=== PATIENT | male | born 1970 ===

== ENCOUNTER 2021-05-09 12:07 | Inpatient (IN) | payer MEDICAID, OTHER ==
[~2021-05-09] VITALS: Ht 170.2 cm; Wt 108.9 kg
[2021-05-09] MEDS ORDERED: KETOROLAC TROMETH 30 MG/ML 1ML VIAL IV ONE (12:30)
[2021-05-09] MEDS ORDERED: ONDANSETRON HCL 4 MG/2 ML VIAL IV ONE (12:30)
[2021-05-09] MEDS: MORPHINE SULFATE 4 MG/ML SYR/VIAL IV ONE ×2 (12:30→16:32)
[2021-05-09] MEDS: SODIUM CHLORIDE 0.9% 1,000 ML IVB ONE ×2 (12:30→16:33)
[2021-05-09 13:24] LABS: Basophils # (auto) 0 10 ^3/uL (0-0.2); Basophils % (auto) 0.4 % (0.0-2.0); Eosinophils # (auto) 0 10 ^3/uL (0-0.8); Eosinophils % (auto) 0.4 % (0.0-7.0); Hematocrit 42.4 % (41.0-53.0); Hemoglobin 14.8 g/dL (13.5-17.5); Lymphocytes # (auto) 0.5 10 ^3/uL (0.4-5.4); Lymphocytes % (auto) 10.2 % (10.0-50.0); Mean Corpuscular Hemoglobin 32.6 pg (28.0-32.0); Mean Corpuscular Volume 93.2 fL (80.0-100.0); Monocytes # (auto) 0.6 10 ^3/uL (0-1.3); Monocytes % (auto) 11.7 % (0.0-12.0); Neutrophils # (auto) 3.9 10 ^3/uL (1.6-8.6); Neutrophils % (auto) 77.3 % (37.0-80.0); Nucleated Red Blood Cells % 0.1 %; Red Blood Cells 4.55 10^6/uL (4.5-5.90); Red Cell Distribution Width 13.7 % (11.8-14.3)
[2021-05-09 13:42] LABS: Albumin 2.8 g/dL (3.4-5.0); Calcium 8.4 mg/dL (8.5-10.1); Potassium 4.2 mmol/L (3.5-5.1)
[2021-05-09 13:45] LABS: BUN/Creatinine Ratio 15.3; Bilirubin, Total 3.7 mg/dL (0.2-1.0)
[2021-05-09] MEDS ORDERED: ALBUMIN 25% 100 ML IV ONE (17:15)
[2021-05-09] MEDS ORDERED: NITROGLYCERIN 0.4 MG SL TAB SL PRN ×2 (17:15→22:30)
[2021-05-09] MEDS ORDERED: MORPHINE SULFATE INJECTION 2 MG/ML SYRG IV PRN ×2 (17:15→22:30)
[2021-05-09] MEDS ORDERED: SODIUM CHLORIDE 0.9% 500 ML IV ONE (17:30)
[2021-05-09] MEDS ORDERED: HYDROCORTISONE SOD SUCC 100 MG/2ML INJ VIAL IV ONE (17:30)
[2021-05-09] MEDS ORDERED: METF-372 PO (18:20)
[2021-05-09] MEDS ORDERED: LISI20TA28 PO (18:20)
[2021-05-09] MEDS ORDERED: SPIR50TA5 PO (18:20)
[2021-05-09] MEDS ORDERED: FUR20T PO (18:20)
[2021-05-09 19:30] VITALS: BP 99/44
[2021-05-09 20:39] LABS: INR 1.73 (0.9-1.15); Partial Thromboplastin Time 32.8 sec (23.6-33.0)
[2021-05-09] MEDS ORDERED: PANTOPRAZOLE 40 MG/10 ML VIAL INJ IV ONE (22:15)
[2021-05-09] MEDS ORDERED: MIDODRINE HCL 10 MG TAB PO ONE (22:15)
[2021-05-09] MEDS ORDERED: DEXTROSE (50%) 50ML SYRG IV PRN (22:30)
[2021-05-09] MEDS ORDERED: PANCREATIC ENZYMES 4200 UNIT CAP PO ONE (22:30)
[2021-05-09] MEDS ORDERED: cefTRIAXone 1GM/50ML D5W 50 ML IV ONE (22:30)
[2021-05-09] MEDS ORDERED: LORazepam 2MG/ML-1ML VIAL IV PRN (22:30)
[2021-05-09] MEDS ORDERED: DOCUSATE SOD 100 MG CAP PO PRN (22:30)
[2021-05-09] MEDS ORDERED: ALUM & MAG HYDROX-SIMETH LIQ(MAALOX) 30 ML PO PRN (22:30)
[2021-05-09] MEDS: HYDROcodone-ACET 5/325MG TAB PO PRN (23:42)
[2021-05-10] VITALS (7 sets, daily range): BP systolic 86–134; BP diastolic 44–72
[2021-05-10] MEDS: ALBUMIN 25% 100 ML IV SCH ×3 (02:00→18:23)
[2021-05-10] MEDS: LACTULOSE 20Gm/30ML SOLN PO SCH ×7 (02:30→22:22)
[2021-05-10] MEDS: ACCU-CHEK COMFORT CURVE STRIP VI SCH ×4 (06:06→22:22)
[2021-05-10] MEDS: InsuLIN REG 1unit/0.01ml Soln (100units/ml) SC SCH ×4 (06:07→22:24)
[2021-05-10] MEDS: MIDODRINE HCL 10 MG TAB PO SCH ×3 (06:08→18:12)
[2021-05-10 07:10] LABS: Basophils # (auto) 0 10 ^3/uL (0-0.2); Basophils % (auto) 0.1 % (0.0-2.0); Eosinophils # (auto) 0 10 ^3/uL (0-0.8); Hematocrit 35.1 % (41.0-53.0); Hemoglobin 12.5 g/dL (13.5-17.5); Lymphocytes # (auto) 0.4 10 ^3/uL (0.4-5.4); Lymphocytes % (auto) 4.6 % (10.0-50.0); Mean Corpuscular Hemoglobin 32.9 pg (28.0-32.0); Mean Corpuscular Hgb Conc. 35.6 g/dL (32.0-36.0); Mean Corpuscular Volume 92.5 fL (80.0-100.0); Monocytes # (auto) 0.9 10 ^3/uL (0-1.3); Monocytes % (auto) 10.8 % (0.0-12.0); Neutrophils # (auto) 6.9 10 ^3/uL (1.6-8.6); Neutrophils % (auto) 84.5 % (37.0-80.0); White Blood Cell 8.1 10^3/uL (4.4-10.8)
[2021-05-10 07:23] LABS: INR 1.98 (0.9-1.15); Partial Thromboplastin Time 34.7 sec (23.6-33.0)
[2021-05-10 07:24] LABS: Albumin 2.7 g/dL (3.4-5.0); Calcium 7.6 mg/dL (8.5-10.1); Magnesium 2.6 mg/dL (1.6-2.6)
[2021-05-10 07:38] LABS: BUN/Creatinine Ratio 17.3; Bilirubin, Total 2.7 mg/dL (0.2-1.0); Phosphorus 3.7 mg/dL (2.5-4.90); Total Protein 5.8 g/dL (6.4-8.2); Uric Acid 6.9 mg/dL (3.5-7.2)
[2021-05-10] MEDS: PANCREATIC ENZYMES 4200 UNIT CAP PO SCH ×3 (08:37→18:12)
[2021-05-10] MEDS: cefTRIAXone 1GM/50ML D5W 50 ML IV SCH (08:38)
[2021-05-10] MEDS: FUROSEMIDE 20 MG TAB PO SCH (10:00)
[2021-05-10] MEDS ORDERED: SPIRONOLACTONE 25 MG TAB PO SCH (10:00)
[2021-05-10] MEDS: PANTOPRAZOLE 40 MG/10 ML VIAL INJ IV SCH ×2 (10:04→22:22)
[2021-05-10] MEDS: HYDROcodone-ACET 5/325MG TAB PO PRN ×3 (10:05→20:30)
[2021-05-10] MEDS ORDERED: SODIUM ZIRCONIUM CYCL 10 GM PAK PO ONE (11:30)
[2021-05-10] MEDS ORDERED: SODIUM BICARBONATE 8.4% INJ 50ML SYRINGE IV ONE (12:45)
[2021-05-10] MEDS ORDERED: InsuLIN REG 1unit/0.01ml Soln (100units/ml) IV ONE (12:45)
[2021-05-10] MEDS ORDERED: DEXTROSE (50%) 50ML SYRG IV ONE (12:45)
[2021-05-10] MEDS ORDERED: CALCIUM GLUC 1,000mg/50ml-NS 50 ML IV ONE (12:45)
[2021-05-10] MEDS: SODIUM BICARBONATE 50ML VIAL 150 ML in D5W 5% 1,000 ML IV SCH ×2 (15:45→19:43)
[2021-05-10] MEDS: SODIUM ZIRCONIUM CYCL 10 GM PAK PO SCH (20:02)
[2021-05-11] MEDS: LACTULOSE 20Gm/30ML SOLN PO SCH ×6 (02:00→21:15)
[2021-05-11] MEDS: SODIUM BICARBONATE 50ML VIAL 150 ML in D5W 5% 1,000 ML IV SCH ×2 (03:15→15:12)
[2021-05-11] MEDS: SODIUM ZIRCONIUM CYCL 10 GM PAK PO SCH ×3 (04:00→19:51)
[2021-05-11 05:00] VITALS: BP 103/53
[2021-05-11] MEDS: MIDODRINE HCL 10 MG TAB PO SCH ×3 (06:16→18:28)
[2021-05-11] MEDS: InsuLIN REG 1unit/0.01ml Soln (100units/ml) SC SCH ×4 (06:16→21:11)
[2021-05-11] MEDS: ACCU-CHEK COMFORT CURVE STRIP VI SCH ×4 (06:17→21:15)
[2021-05-11 06:46] LABS: Calcium 7.6 mg/dL (8.5-10.1); Hematocrit 35.3 % (41.0-53.0); Hemoglobin 12.7 g/dL (13.5-17.5); Mean Corpuscular Hemoglobin 33.3 pg (28.0-32.0); Mean Corpuscular Hgb Conc. 36.1 g/dL (32.0-36.0); Mean Corpuscular Volume 92.3 fL (80.0-100.0); Potassium 4.7 mmol/L (3.5-5.1); Red Blood Cells 3.82 10^6/uL (4.5-5.90); Red Cell Distribution Width 13.9 % (11.8-14.3); White Blood Cell 7.5 10^3/uL (4.4-10.8)
[2021-05-11 06:48] LABS: BUN/Creatinine Ratio 23.1
[2021-05-11 07:20] LABS: Basophils % (manual) 0 (0.0-2.0); Blast Cells 0; Metamyelocytes % 0; Myelocytes % 0; Promyelocytes % 0; Reactive Lymphocytes 0
[2021-05-11 08:43] VITALS: BP 110/59
[2021-05-11] MEDS: PANTOPRAZOLE 40 MG/10 ML VIAL INJ IV SCH ×2 (09:32→21:15)
[2021-05-11] MEDS: cefTRIAXone 1GM/50ML D5W 50 ML IV SCH ×2 (09:32→10:32)
[2021-05-11] MEDS: FUROSEMIDE 20 MG TAB PO SCH (09:33)
[2021-05-11] MEDS: PANCREATIC ENZYMES 4200 UNIT CAP PO SCH ×3 (09:33→18:28)
[2021-05-11] MEDS: HYDROcodone-ACET 5/325MG TAB PO PRN (09:35)
[2021-05-11 09:37] LABS: Band Neutrophils % (manual) 40; Eosinophils % (manual) 1 (0-7); Lymphocytes % (manual) 6 (10.0-50.0); Monocytes % (manual) 7 (0-12)
[2021-05-11 13:00] VITALS: BP 101/48
[2021-05-11] MEDS: metroNIDAZOLE 500MG/100ML 100 ML IV SCH ×2 (14:25→21:15)
[2021-05-11 15:18] LABS: Hepatitis A Ab IgM Negative; Hepatitis B Core IgM Negative; Hepatitis C Antibody Negative (Negative)
[2021-05-11 16:53] VITALS: BP 110/61
[2021-05-11] MEDS: HYDROcodone-ACET 10/325MG TAB PO PRN (18:29)
[2021-05-11 22:00] VITALS: BP 130/60
[2021-05-12] MEDS: LACTULOSE 20Gm/30ML SOLN PO SCH ×6 (02:00→21:39)
[2021-05-12] MEDS: SODIUM BICARBONATE 50ML VIAL 150 ML in D5W 5% 1,000 ML IV SCH (03:39)
[2021-05-12] MEDS: HYDROcodone-ACET 10/325MG TAB PO PRN ×3 (03:44→17:43)
[2021-05-12] MEDS: SODIUM ZIRCONIUM CYCL 10 GM PAK PO SCH ×2 (04:00→12:30)
[2021-05-12 04:29] LABS: Protein, Urine 24.7 mg/dL (0.0-11.9); Sodium Urine < 5 mmol/L (40-220)
[2021-05-12 04:32] LABS: Creatinine, Urine 163 mg/dL (30.0-125.0)
[2021-05-12 04:42] LABS: Urine Bacteria FEW /hpf (None Seen); Urine Blood Negative /uL (Negative); Urine Hyaline Cast FEW /lpf (0 - 2); Urine Specific Gravity 1.018 (1.001-1.035); Urine WBC 1 /hpf (0 - 3)
[2021-05-12 04:55] VITALS: BP 138/67
[2021-05-12] MEDS: metroNIDAZOLE 500MG/100ML 100 ML IV SCH ×3 (05:47→21:39)
[2021-05-12] MEDS: MIDODRINE HCL 10 MG TAB PO SCH ×3 (05:47→17:42)
[2021-05-12] MEDS: ACCU-CHEK COMFORT CURVE STRIP VI SCH ×4 (06:33→21:39)
[2021-05-12] MEDS: InsuLIN REG 1unit/0.01ml Soln (100units/ml) SC SCH ×4 (06:34→21:36)
[2021-05-12 06:59] LABS: Basophils # (auto) 0 10 ^3/uL (0-0.2); Eosinophils # (auto) 0 10 ^3/uL (0-0.8); Hemoglobin 13.2 g/dL (13.5-17.5); Mean Corpuscular Hemoglobin 32.5 pg (28.0-32.0)
[2021-05-12 07:02] LABS: Basophils % (auto) 0.3 % (0.0-2.0); Eosinophils % (auto) 0.4 % (0.0-7.0); Hematocrit 37.6 % (41.0-53.0); Lymphocytes # (auto) 0.2 10 ^3/uL (0.4-5.4); Lymphocytes % (auto) 2.8 % (10.0-50.0); Mean Corpuscular Hgb Conc. 35.2 g/dL (32.0-36.0); Mean Corpuscular Volume 92.3 fL (80.0-100.0); Monocytes # (auto) 0.6 10 ^3/uL (0-1.3); Monocytes % (auto) 7.3 % (0.0-12.0); Neutrophils # (auto) 6.7 10 ^3/uL (1.6-8.6); Neutrophils % (auto) 89.2 % (37.0-80.0); Nucleated Red Blood Cells % 0.3 %; Red Blood Cells 4.07 10^6/uL (4.5-5.90); Red Cell Distribution Width 13.9 % (11.8-14.3); White Blood Cell 7.5 10^3/uL (4.4-10.8)
[2021-05-12 07:07] LABS: Calcium 7.8 mg/dL (8.5-10.1); Potassium 3.8 mmol/L (3.5-5.1)
[2021-05-12 07:08] LABS: BUN/Creatinine Ratio 39.4
[2021-05-12 08:45] VITALS: BP 111/63
[2021-05-12] MEDS: PANCREATIC ENZYMES 4200 UNIT CAP PO SCH ×3 (10:47→17:42)
[2021-05-12] MEDS: SODIUM CHLORIDE 0.9% 1,000 ML IV SCH ×2 (10:47→21:35)
[2021-05-12] MEDS: PANTOPRAZOLE 40 MG/10 ML VIAL INJ IV SCH ×2 (10:48→21:39)
[2021-05-12] MEDS: cefTRIAXone 1GM/50ML D5W 50 ML IV SCH (10:48)
[2021-05-12 13:00] VITALS: BP 153/69
[2021-05-12 17:19] VITALS: BP 152/78
[2021-05-12 21:38] VITALS: BP 148/78
[2021-05-13] MEDS: LACTULOSE 20Gm/30ML SOLN PO SCH ×6 (02:39→21:41)
[2021-05-13] MEDS: HYDROcodone-ACET 10/325MG TAB PO PRN ×2 (04:52→12:07)
[2021-05-13 04:54] VITALS: BP 145/83
[2021-05-13] MEDS: SODIUM CHLORIDE 0.9% 1,000 ML IV SCH (04:54)
[2021-05-13 05:23] LABS: Calcium 7.4 mg/dL (8.5-10.1); Potassium 3.8 mmol/L (3.5-5.1)
[2021-05-13 05:26] LABS: BUN/Creatinine Ratio 49.1
[2021-05-13] MEDS: InsuLIN REG 1unit/0.01ml Soln (100units/ml) SC SCH ×4 (06:08→21:38)
[2021-05-13] MEDS: metroNIDAZOLE 500MG/100ML 100 ML IV SCH ×3 (06:09→21:41)
[2021-05-13] MEDS: ACCU-CHEK COMFORT CURVE STRIP VI SCH ×4 (06:10→21:41)
[2021-05-13] MEDS: MIDODRINE HCL 10 MG TAB PO SCH ×3 (06:10→18:00)
[2021-05-13 08:30] VITALS: BP 151/71
[2021-05-13] MEDS: cefTRIAXone 1GM/50ML D5W 50 ML IV SCH (09:14)
[2021-05-13] MEDS: PANCREATIC ENZYMES 4200 UNIT CAP PO SCH ×3 (09:14→19:20)
[2021-05-13] MEDS: PANTOPRAZOLE 40 MG/10 ML VIAL INJ IV SCH ×2 (09:15→21:41)
[2021-05-13 12:30] VITALS: BP 156/75
[2021-05-13 17:00] VITALS: BP 161/71
[2021-05-13 22:00] VITALS: BP 158/71
[2021-05-14] MEDS: LACTULOSE 20Gm/30ML SOLN PO SCH ×7 (02:00→22:08)
[2021-05-14 04:00] VITALS: BP 146/76
[2021-05-14] MEDS: metroNIDAZOLE 500MG/100ML 100 ML IV SCH ×3 (05:11→22:00)
[2021-05-14] MEDS: HYDROcodone-ACET 10/325MG TAB PO PRN ×3 (05:12→17:15)
[2021-05-14] MEDS: MIDODRINE HCL 10 MG TAB PO SCH ×3 (05:16→17:26)
[2021-05-14 05:48] LABS: BUN/Creatinine Ratio 49.4; Calcium 7.6 mg/dL (8.5-10.1); Potassium 3.9 mmol/L (3.5-5.1)
[2021-05-14] MEDS: ACCU-CHEK COMFORT CURVE STRIP VI SCH ×4 (06:18→22:01)
[2021-05-14] MEDS: InsuLIN REG 1unit/0.01ml Soln (100units/ml) SC SCH ×4 (06:18→21:54)
[2021-05-14 09:00] VITALS: BP 142/75
[2021-05-14] MEDS: PANTOPRAZOLE 40 MG/10 ML VIAL INJ IV SCH ×2 (09:37→22:01)
[2021-05-14] MEDS: cefTRIAXone 1GM/50ML D5W 50 ML IV SCH (09:37)
[2021-05-14] MEDS: PANCREATIC ENZYMES 4200 UNIT CAP PO SCH ×3 (09:37→17:26)
[2021-05-14 13:00] VITALS: BP 127/75
[2021-05-14 17:46] VITALS: BP 158/71
[2021-05-14 21:35] VITALS: BP 138/70
[2021-05-15] MEDS: HYDROcodone-ACET 10/325MG TAB PO PRN ×2 (00:31→20:15)
[2021-05-15] MEDS: LACTULOSE 20Gm/30ML SOLN PO SCH ×4 (02:00→14:30)
[2021-05-15 04:33] VITALS: BP 149/73
[2021-05-15] MEDS: MIDODRINE HCL 10 MG TAB PO SCH ×2 (05:56→12:00)
[2021-05-15] MEDS: metroNIDAZOLE 500MG/100ML 100 ML IV SCH ×2 (05:56→14:30)
[2021-05-15 06:04] LABS: BUN/Creatinine Ratio 53.6; Potassium 3.7 mmol/L (3.5-5.1)
[2021-05-15] MEDS: InsuLIN REG 1unit/0.01ml Soln (100units/ml) SC SCH ×3 (06:09→22:00)
[2021-05-15] MEDS: ACCU-CHEK COMFORT CURVE STRIP VI SCH ×4 (06:12→21:55)
[2021-05-15] MEDS: PANCREATIC ENZYMES 4200 UNIT CAP PO SCH ×3 (08:00→18:00)
[2021-05-15 08:43] VITALS: BP 147/77
[2021-05-15] MEDS: cefTRIAXone 1GM/50ML D5W 50 ML IV SCH (09:00)
[2021-05-15] MEDS: PANTOPRAZOLE 40 MG/10 ML VIAL INJ IV SCH ×2 (10:00→22:06)
[2021-05-15 10:50] LABS: INR 1.93 (0.9-1.15); Partial Thromboplastin Time 37.6 sec (23.6-33.0)
[2021-05-15] MEDS: ONDANSETRON HCL 4 MG/2 ML VIAL IV PRN ×2 (11:42→20:12)
[2021-05-15] MEDS: HYDROcodone-ACET 5/325MG TAB PO PRN (11:43)
[2021-05-15 11:49] LABS: Eosinophils # (auto) 0.1 10 ^3/uL (0-0.8); Eosinophils % (auto) 0.5 % (0.0-7.0); Lymphocytes # (auto) 0.7 10 ^3/uL (0.4-5.4); Mean Corpuscular Hemoglobin 31.3 pg (28.0-32.0); Mean Corpuscular Hgb Conc. 33.7 g/dL (32.0-36.0)
[2021-05-15 11:52] LABS: Basophils # (auto) 0.1 10 ^3/uL (0-0.2); Basophils % (auto) 0.5 % (0.0-2.0); Hematocrit 40.8 % (41.0-53.0); Hemoglobin 13.7 g/dL (13.5-17.5); Lymphocytes % (auto) 4.9 % (10.0-50.0); Mean Corpuscular Volume 93.1 fL (80.0-100.0); Monocytes # (auto) 1.6 10 ^3/uL (0-1.3); Monocytes % (auto) 11.2 % (0.0-12.0); Neutrophils % (auto) 82.9 % (37.0-80.0); Nucleated Red Blood Cells % 0.1 %; Red Blood Cells 4.38 10^6/uL (4.5-5.90); Red Cell Distribution Width 14.5 % (11.8-14.3); White Blood Cell 14.5 10^3/uL (4.4-10.8)
[2021-05-15 13:00] VITALS: BP 136/72
[2021-05-15 16:51] VITALS: BP 159/77
[2021-05-15 20:00] VITALS: BP 158/76
[2021-05-16] MEDS: ONDANSETRON HCL 4 MG/2 ML VIAL IV PRN ×2 (03:19→07:34)
[2021-05-16] MEDS: HYDROcodone-ACET 10/325MG TAB PO PRN (03:19)
[2021-05-16] MEDS: InsuLIN REG 1unit/0.01ml Soln (100units/ml) SC SCH ×3 (03:27→12:30)
[2021-05-16 07:18] LABS: Potassium 3.9 mmol/L (3.5-5.1)
[2021-05-16] MEDS: ACCU-CHEK COMFORT CURVE STRIP VI SCH ×2 (07:21→12:25)
[2021-05-16 07:26] LABS: BUN/Creatinine Ratio 50.4; Calcium 7.6 mg/dL (8.5-10.1)
[2021-05-16] MEDS: HYDROcodone-ACET 5/325MG TAB PO PRN (07:35)
[2021-05-16] MEDS: PANCREATIC ENZYMES 4200 UNIT CAP PO SCH ×2 (08:00→12:00)
[2021-05-16 09:00] VITALS: BP 159/72
[2021-05-16] MEDS: cefTRIAXone 1GM/50ML D5W 50 ML IV SCH (09:00)
[2021-05-16] MEDS ORDERED: FUROSEMIDE 20 MG TAB PO SCH (10:00)
[2021-05-16] MEDS: PANTOPRAZOLE 40 MG/10 ML VIAL INJ IV SCH (10:00)
[2021-05-16 11:03] VITALS: BP 159/72
[2021-05-16 13:00] VITALS: BP 144/70
== END 2021-05-16 15:45 | disposition home or self-care (01) | DRG 720 ==
LOC: ER 12:07 → EDBD 12:07 → TELE 17:14 → TELE-CENTR 19:24
PROVIDERS: ADMIT Hospitalist; ATTEND Family Medicine
PROC: 0W9G3ZZ Drainage of Peritoneal Cavity, Percutaneous Approach (ICD-10-PCS; principal; 2021-05-10)
PROC: 0W9G3ZZ Drainage of Peritoneal Cavity, Percutaneous Approach (ICD-10-PCS; 2021-05-15)
DX: A41.9 Sepsis, unspecified organism (principal); N17.0 Acute kidney failure with tubular necrosis; K76.7 Hepatorenal syndrome; E43 Unspecified severe protein-calorie malnutrition; D68.4 Acquired coagulation factor deficiency; D69.6 Thrombocytopenia, unspecified; K70.31 Alcoholic cirrhosis of liver with ascites; K76.6 Portal hypertension; R16.2 Hepatomegaly with splenomegaly, not elsewhere classified; E11.40 Type 2 diabetes mellitus with diabetic neuropathy, unspecified; K31.89 Other diseases of stomach and duodenum; K86.1 Other chronic pancreatitis; N18.31 Chronic kidney disease, stage 3a; E87.5 Hyperkalemia; Z20.822 Contact with and (suspected) exposure to COVID-19; E11.22 Type 2 diabetes mellitus with diabetic chronic kidney disease; F17.210 Nicotine dependence, cigarettes, uncomplicated; I12.9 Hypertensive chronic kidney disease with stage 1 through stage 4 chronic kidney disease, or unspecified chronic kidney disease; N28.1 Cyst of kidney, acquired; N18.32 Chronic kidney disease, stage 3b; Z79.899 Other long term (current) drug therapy; Z80.0 Family history of malignant neoplasm of digestive organs; Z80.6 Family history of leukemia; Z83.3 Family history of diabetes mellitus; Z85.038 Personal history of other malignant neoplasm of large intestine; Z68.35 Body mass index [BMI] 35.0-35.9, adult
CPT/HCPCS: 36415; 49083; 74176; 76700; 76705; 76775; 76942; 78582; 80048; 80053; 80061; 80074; 81001; 82105; 82140; 82150; 82378; 82570; 82728; 82962; 83036; 83615; 83690; 83735; 83880; 83986; 84100; 84154; 84156; 84300; 84443; 84484; 84550; 85007; 85025; 85027; 85379; 85610; 85730; 86301; 87040; 87077; 87186; 87205; 87426; 89051; 93005; 93970; 96361; 96365; 96375; C9113; G0378; J0696; J1815; J1885; J2405; J3490; P9047

== ENCOUNTER 2021-05-23 10:13 | Inpatient (IN) | payer MEDICAID ==
[~2021-05-23] VITALS: Ht 172.7 cm; Wt 108.5 kg
[~2021-05-23 10:13] MED LIST: FUR20T PO; LISI20TA28 PO; METF-372 PO; SPIR50TA5 PO
[2021-05-23 10:55] LABS: Basophils # (auto) 0.1 10 ^3/uL (0-0.2); Basophils % (auto) 0.6 % (0.0-2.0); Eosinophils # (auto) 0.1 10 ^3/uL (0-0.8); Eosinophils % (auto) 1.1 % (0.0-7.0); Hematocrit 38.1 % (41.0-53.0); Hemoglobin 13.1 g/dL (13.5-17.5); Lymphocytes # (auto) 0.6 10 ^3/uL (0.4-5.4); Lymphocytes % (auto) 6.3 % (10.0-50.0); Mean Corpuscular Hemoglobin 32.2 pg (28.0-32.0); Mean Corpuscular Hgb Conc. 34.4 g/dL (32.0-36.0); Mean Corpuscular Volume 93.6 fL (80.0-100.0); Neutrophils # (auto) 7.5 10 ^3/uL (1.6-8.6); Nucleated Red Blood Cells % 0.1 %; Red Blood Cells 4.07 10^6/uL (4.5-5.90); Red Cell Distribution Width 14.5 % (11.8-14.3); White Blood Cell 9.2 10^3/uL (4.4-10.8)
[2021-05-23 11:14] LABS: INR 2.2 (0.9-1.15); Partial Thromboplastin Time 35.6 sec (23.6-33.0)
[2021-05-23 11:21] LABS: Albumin 1.8 g/dL (3.4-5.0); Calcium 8.4 mg/dL (8.5-10.1)
[2021-05-23 11:24] LABS: BUN/Creatinine Ratio 24.8; Bilirubin, Total 4.2 mg/dL (0.2-1.0)
[2021-05-23 11:42] LABS: Potassium 5.8 mmol/L (3.5-5.1)
[2021-05-23] MEDS ORDERED: PIPERACILLIN-TAZO 4.5GM 100 ML IV ONE (14:30)
[2021-05-23] MEDS ORDERED: SODIUM ZIRCONIUM CYCL 10 GM PAK PO SCH (17:13)
[2021-05-23] MEDS ORDERED: SODIUM ZIRCONIUM CYCL 10 GM PAK PO ONE (17:15)
[2021-05-23] MEDS ORDERED: FUROSEMIDE 40 MG/4 ML VIAL IV ONE (17:15)
[2021-05-23] MEDS ORDERED: NITROGLYCERIN 0.4 MG SL TAB SL PRN ×2 (17:15→20:30)
[2021-05-23] MEDS ORDERED: MORPHINE SULFATE INJECTION 2 MG/ML SYRG IV PRN ×3 (17:15→20:30)
[2021-05-23] MEDS ORDERED: ALBUTEROL SULF 2.5 MG/0.5ML(0.5%) NEB SOLN NEB ONE (17:15)
[2021-05-23] MEDS ORDERED: InsuLIN REG 1unit/0.01ml Soln (100units/ml) IV ONE (17:15)
[2021-05-23] MEDS ORDERED: DEXTROSE (50%) 50ML SYRG IV ONE (17:15)
[2021-05-23] MEDS ORDERED: CALCIUM CHL 100MG/ML 1,000 MG in D5W 5% 100 ML IV ONE (17:15)
[2021-05-23] MEDS ORDERED: SODIUM BICARBONATE 8.4% INJ 50ML SYRINGE IV ONE (17:15)
[2021-05-23] MEDS ORDERED: ONDANSETRON HCL 4 MG/2 ML VIAL IV PRN ×2 (17:30→20:30)
[2021-05-23] MEDS ORDERED: BUMETANIDE 2.5mg/10ml (0.25 mg/ml) INJ IV ONE (20:00)
[2021-05-23] MEDS ORDERED: ALBUMIN 25% 100 ML IV ONE (20:00)
[2021-05-23] MEDS ORDERED: ALBUMIN 25% 100 ML IV SCH (20:00)
[2021-05-23] MEDS ORDERED: cefTRIAXone 1GM/50ML D5W 50 ML IV ONE (20:00)
[2021-05-23] MEDS ORDERED: PANTOPRAZOLE 40 MG/10 ML VIAL INJ IV ONE (20:00)
[2021-05-23] MEDS ORDERED: OCTREOTIDE ACETATE 100 MCG/ML VL SUBCUT ONE (20:15)
[2021-05-23] MEDS ORDERED: MIDODRINE HCL 10 MG TAB PO ONE (20:15)
[2021-05-23] MEDS ORDERED: DEXTROSE (50%) 50ML SYRG IV PRN (20:30)
[2021-05-23] MEDS ORDERED: ALUM & MAG HYDROX-SIMETH LIQ(MAALOX) 30 ML PO PRN (20:30)
[2021-05-23] MEDS ORDERED: DOCUSATE SOD 100 MG CAP PO PRN (20:30)
[2021-05-23] MEDS: ACCU-CHEK COMFORT CURVE STRIP VI SCH (22:00)
[2021-05-23] MEDS ORDERED: PROPRANOLOL HCL 20 MG TAB PO SCH (22:00)
[2021-05-23] MEDS: OCTREOTIDE ACETATE 100 MCG/ML VL SUBCUT SCH (22:00)
[2021-05-23] MEDS: MIDODRINE HCL 10 MG TAB PO SCH (22:00)
[2021-05-23] MEDS: ALBUMIN 25% 100 ML IV SCH (22:00)
[2021-05-23] MEDS: InsuLIN REG 1unit/0.01ml Soln (100units/ml) SC SCH (22:00)
[2021-05-23] MEDS: LACTULOSE 20Gm/30ML SOLN PO SCH (23:06)
[2021-05-23] MEDS: SODIUM ZIRCONIUM CYCL 10 GM PAK PO SCH (23:06)
[2021-05-23] MEDS: HYDROcodone-ACET 5/325MG TAB PO PRN (23:07)
[2021-05-23 23:12] LABS: Potassium 5.6 mmol/L (3.5-5.1)
[2021-05-23 23:31] LABS: Cholesterol < 50 mg/dL (< 200); HDL Cholesterol 10 mg/dL (40-59); LDL Cholesterol 19 mg/dL (< 100); Triglycerides 66 mg/dL (< 150)
[2021-05-23 23:32] VITALS: BP 121/52
[2021-05-24 00:04] LABS: Amphetamine Screen, Urine NEGATIVE (NEGATIVE); Barbiturate Scree,Urine NEGATIVE (NEGATIVE); Benzodiazephine Screen, Urine NEGATIVE (NEGATIVE); Cannabinoid Screen, Urine NEGATIVE (NEGATIVE); Cocaine Screen, Urine NEGATIVE (NEGATIVE); Opiate Scree,Urine POSITIVE (NEGATIVE); Phencyclidine Screen, Urine NEGATIVE (NEGATIVE)
[2021-05-24 00:10] LABS: Urine Bacteria NONE SEEN /hpf (None Seen); Urine Blood Negative /uL (Negative); Urine WBC 9 /hpf (0 - 3)
[2021-05-24] MEDS: LACTULOSE 20Gm/30ML SOLN PO SCH ×4 (02:24→21:18)
[2021-05-24 04:30] VITALS: BP 121/53
[2021-05-24] MEDS: ALBUMIN 25% 100 ML IV SCH ×3 (04:47→20:15)
[2021-05-24] MEDS: MIDODRINE HCL 10 MG TAB PO SCH ×3 (05:47→16:55)
[2021-05-24] MEDS: SODIUM ZIRCONIUM CYCL 10 GM PAK PO SCH ×3 (05:47→21:18)
[2021-05-24] MEDS: OCTREOTIDE ACETATE 100 MCG/ML VL SUBCUT SCH (05:47)
[2021-05-24] MEDS: InsuLIN REG 1unit/0.01ml Soln (100units/ml) SC SCH ×4 (06:00→21:23)
[2021-05-24] MEDS: ACCU-CHEK COMFORT CURVE STRIP VI SCH ×4 (06:00→21:24)
[2021-05-24 07:09] LABS: Basophils # (auto) 0 10 ^3/uL (0-0.2); Basophils % (auto) 0.6 % (0.0-2.0); Eosinophils # (auto) 0.1 10 ^3/uL (0-0.8); Eosinophils % (auto) 0.7 % (0.0-7.0); Hematocrit 38.7 % (41.0-53.0); Hemoglobin 13.1 g/dL (13.5-17.5); Lymphocytes # (auto) 0.7 10 ^3/uL (0.4-5.4); Lymphocytes % (auto) 9.2 % (10.0-50.0); Mean Corpuscular Hemoglobin 32.2 pg (28.0-32.0); Mean Corpuscular Hgb Conc. 33.9 g/dL (32.0-36.0); Monocytes % (auto) 12.4 % (0.0-12.0); Neutrophils # (auto) 6.1 10 ^3/uL (1.6-8.6); Neutrophils % (auto) 77.1 % (37.0-80.0); Red Blood Cells 4.08 10^6/uL (4.5-5.90); Red Cell Distribution Width 14.9 % (11.8-14.3); White Blood Cell 7.9 10^3/uL (4.4-10.8)
[2021-05-24 07:24] LABS: INR 2.15 (0.9-1.15); Partial Thromboplastin Time 36.7 sec (23.6-33.0)
[2021-05-24 07:35] LABS: Albumin 2.3 g/dL (3.4-5.0); BUN/Creatinine Ratio 22.2; Bilirubin, Total 4.8 mg/dL (0.2-1.0); Calcium 8.7 mg/dL (8.5-10.1); Phosphorus 7.4 mg/dL (2.5-4.90); Total Protein 7.4 g/dL (6.4-8.2)
[2021-05-24 08:00] VITALS: BP 104/52
[2021-05-24 08:21] LABS: Potassium 5.7 mmol/L (3.5-5.1)
[2021-05-24] MEDS ORDERED: cefTRIAXone 1GM/50ML D5W 50 ML IV SCH (09:00)
[2021-05-24] MEDS ORDERED: SPIRONOLACTONE 25 MG TAB PO SCH (10:00)
[2021-05-24] MEDS ORDERED: FUROSEMIDE 20 MG TAB PO SCH (10:00)
[2021-05-24] MEDS: PANTOPRAZOLE 40 MG/10 ML VIAL INJ IV SCH (10:07)
[2021-05-24] MEDS ORDERED: FLUCONAZOLE 200MG/100ML 100 ML IV ONE (11:00)
[2021-05-24] MEDS ORDERED: CALCIUM CHL 100MG/ML 500 MG in D5W 5% 100 ML IV ONE (11:00)
[2021-05-24 12:00] VITALS: BP 138/63
[2021-05-24 17:59] LABS: Anion Gap 10 (5-15); Carbon Dioxide 23 mmol/L (21-32); Chloride 95 mmol/L (98-107); Glucose 220 mg/dL (74-106); Sodium 128 mmol/L (136-145)
[2021-05-24 18:00] LABS: BUN/Creatinine Ratio 23.2; Calcium 8.4 mg/dL (8.5-10.1); GFR African American 14 mL/min; GFR Non-African American 11 mL/min
[2021-05-24] MEDS: SODIUM CHLORIDE 0.9% 1,000 ML IV SCH (19:00)
[2021-05-24 20:01] LABS: Blood Urea Nitrogen 132 mg/dL (7-18); Potassium 5.7 mmol/L (3.5-5.1)
[2021-05-24] MEDS ORDERED: InsuLIN REG 1unit/0.01ml Soln (100units/ml) IV ONE (20:30)
[2021-05-24] MEDS ORDERED: SODIUM BICARBONATE 8.4% INJ 50ML SYRINGE IV ONE (20:30)
[2021-05-24] MEDS: HYDROcodone-ACET 5/325MG TAB PO PRN (21:18)
[2021-05-24 21:28] VITALS: BP 126/61
[2021-05-24] MEDS ORDERED: LINEZOLID 600MG/300ML 300 ML IV SCH (22:00)
[2021-05-25] MEDS: ALBUMIN 25% 100 ML IV SCH ×2 (04:14→15:52)
[2021-05-25] MEDS: SODIUM CHLORIDE 0.9% 1,000 ML IV SCH ×2 (04:14→15:00)
[2021-05-25 05:26] LABS: Protein, Urine 30.8 mg/dL (0.0-11.9)
[2021-05-25 05:44] VITALS: BP 118/56
[2021-05-25 05:56] LABS: Urine Bacteria FEW /hpf (None Seen); Urine Blood TRACE /uL (Negative); Urine Budding Yeast MANY /hpf (None Seen); Urine Hyaline Cast MANY /lpf (0 - 2); Urine Mucus FEW (None Seen); Urine Specific Gravity 1.016 (1.001-1.035); Urine WBC 8 /hpf (0 - 3)
[2021-05-25] MEDS: MIDODRINE HCL 10 MG TAB PO SCH ×3 (06:00→18:36)
[2021-05-25] MEDS: SODIUM ZIRCONIUM CYCL 10 GM PAK PO SCH ×2 (06:00→15:40)
[2021-05-25] MEDS: ACCU-CHEK COMFORT CURVE STRIP VI SCH ×4 (06:19→22:04)
[2021-05-25] MEDS: InsuLIN REG 1unit/0.01ml Soln (100units/ml) SC SCH ×4 (06:19→22:06)
[2021-05-25 07:27] LABS: Hematocrit 33.9 % (41.0-53.0); Hemoglobin 11.5 g/dL (13.5-17.5); Mean Corpuscular Hemoglobin 32.1 pg (28.0-32.0); Mean Corpuscular Hgb Conc. 33.9 g/dL (32.0-36.0); Mean Corpuscular Volume 94.6 fL (80.0-100.0); Red Blood Cells 3.59 10^6/uL (4.5-5.90); Red Cell Distribution Width 14.6 % (11.8-14.3); White Blood Cell 7.3 10^3/uL (4.4-10.8)
[2021-05-25 07:32] LABS: Basophils % (manual) 0 (0.0-2.0); Blast Cells 0; Eosinophils % (manual) 0 (0-7); Metamyelocytes % 0; Myelocytes % 0; Promyelocytes % 0; Reactive Lymphocytes 0
[2021-05-25 07:41] LABS: Albumin 2.3 g/dL (3.4-5.0); Calcium 8.4 mg/dL (8.5-10.1); Potassium 5.2 mmol/L (3.5-5.1)
[2021-05-25 07:46] LABS: BUN/Creatinine Ratio 23.8; Bilirubin, Total 5.2 mg/dL (0.2-1.0); Total Protein 6.1 g/dL (6.4-8.2)
[2021-05-25 08:00] VITALS: BP 125/61
[2021-05-25 08:12] LABS: Band Neutrophils % (manual) 8; Lymphocytes % (manual) 8 (10.0-50.0); Monocytes % (manual) 12 (0-12)
[2021-05-25] MEDS: PANTOPRAZOLE 40 MG/10 ML VIAL INJ IV SCH (08:51)
[2021-05-25] MEDS: LACTULOSE 20Gm/30ML SOLN PO SCH ×2 (08:52→22:04)
[2021-05-25] MEDS ORDERED: fentaNYL CITRATE 100 MCG/2 ML VL ONE (09:20)
[2021-05-25] MEDS: FLUCONAZOLE 200MG/100ML 100 ML IV SCH (11:35)
[2021-05-25] MEDS ORDERED: FUROSEMIDE 40 MG/4 ML VIAL IV ONE (11:45)
[2021-05-25] MEDS: MORPHINE SULFATE INJECTION 2 MG/ML SYRG IV PRN ×2 (11:51→18:37)
[2021-05-25 12:00] VITALS: BP 127/58
[2021-05-25 13:11] LABS: INR 2.45 (0.9-1.15); Partial Thromboplastin Time 39.9 sec (23.6-33.0)
[2021-05-25] MEDS: AMPICILLIN & SULBACTAM SODIUM 3 GM in SODIUM CHL 0.9% 100 ML IV SCH ×2 (13:28→23:00)
[2021-05-25] MEDS: HYDROcodone-ACET 5/325MG TAB PO PRN ×3 (15:53→23:58)
[2021-05-25 16:00] VITALS: BP 125/62
[2021-05-25 21:46] VITALS: BP 124/63
[2021-05-26] MEDS: SODIUM CHLORIDE 0.9% 1,000 ML IV SCH ×2 (01:00→12:47)
[2021-05-26 05:28] VITALS: BP 117/63
[2021-05-26] MEDS: MIDODRINE HCL 10 MG TAB PO SCH ×3 (06:00→17:47)
[2021-05-26 06:48] LABS: Hematocrit 34.5 % (41.0-53.0); Hemoglobin 11.4 g/dL (13.5-17.5); Mean Corpuscular Hemoglobin 31.6 pg (28.0-32.0); Mean Corpuscular Hgb Conc. 33.1 g/dL (32.0-36.0); Mean Corpuscular Volume 95.6 fL (80.0-100.0); Red Blood Cells 3.61 10^6/uL (4.5-5.90); Red Cell Distribution Width 14.8 % (11.8-14.3); White Blood Cell 4.6 10^3/uL (4.4-10.8)
[2021-05-26 06:58] LABS: Basophils % (manual) 0 (0.0-2.0); Blast Cells 0; Metamyelocytes % 0; Myelocytes % 0; Promyelocytes % 0; Reactive Lymphocytes 0
[2021-05-26] MEDS: ACCU-CHEK COMFORT CURVE STRIP VI SCH ×4 (07:10→21:55)
[2021-05-26] MEDS: InsuLIN REG 1unit/0.01ml Soln (100units/ml) SC SCH ×4 (07:12→21:59)
[2021-05-26 07:20] LABS: Albumin 2.2 g/dL (3.4-5.0); Calcium 8.3 mg/dL (8.5-10.1); Potassium 4.6 mmol/L (3.5-5.1)
[2021-05-26 07:23] LABS: BUN/Creatinine Ratio 28.9
[2021-05-26 07:25] LABS: Bilirubin, Total 4.9 mg/dL (0.2-1.0); Total Protein 5.7 g/dL (6.4-8.2)
[2021-05-26 09:00] VITALS: BP 136/66
[2021-05-26] MEDS ORDERED: FUROSEMIDE 40 MG/4 ML VIAL IV SCH (10:00)
[2021-05-26] MEDS: FLUCONAZOLE 200MG/100ML 100 ML IV SCH (10:01)
[2021-05-26] MEDS: PANTOPRAZOLE 40 MG/10 ML VIAL INJ IV SCH (10:02)
[2021-05-26] MEDS: LACTULOSE 20Gm/30ML SOLN PO SCH ×2 (10:02→21:55)
[2021-05-26] MEDS: HYDROcodone-ACET 5/325MG TAB PO PRN ×2 (10:05→17:47)
[2021-05-26 11:52] LABS: Band Neutrophils % (manual) 10; Eosinophils % (manual) 3 (0-7); Lymphocytes % (manual) 8 (10.0-50.0); Monocytes % (manual) 9 (0-12)
[2021-05-26] MEDS: AMPICILLIN & SULBACTAM SODIUM 3 GM in SODIUM CHL 0.9% 100 ML IV SCH ×2 (12:47→23:38)
[2021-05-26 13:00] VITALS: BP 127/67
[2021-05-26] MEDS: OCTREOTIDE ACETATE 100 MCG/ML VL SUBCUT SCH ×2 (14:24→21:55)
[2021-05-26 16:54] VITALS: BP 129/67
[2021-05-26] MEDS: DOPamine 1600MCG/ML D5W 250 ML IV SCH (17:46)
[2021-05-26] MEDS: ALBUMIN 25% 100 ML IV SCH ×2 (18:08→22:20)
[2021-05-26 22:00] VITALS: BP 165/67
[2021-05-27] MEDS: SODIUM CHLORIDE 0.9% 1,000 ML IV SCH ×2 (01:05→14:25)
[2021-05-27] MEDS: HYDROcodone-ACET 5/325MG TAB PO PRN ×3 (02:14→20:29)
[2021-05-27 05:00] VITALS: BP 148/73
[2021-05-27] MEDS: MIDODRINE HCL 10 MG TAB PO SCH (06:00)
[2021-05-27] MEDS: OCTREOTIDE ACETATE 100 MCG/ML VL SUBCUT SCH ×3 (06:03→20:29)
[2021-05-27] MEDS: ACCU-CHEK COMFORT CURVE STRIP VI SCH ×4 (06:03→20:29)
[2021-05-27] MEDS: InsuLIN REG 1unit/0.01ml Soln (100units/ml) SC SCH ×4 (06:04→20:38)
[2021-05-27 06:32] LABS: Red Blood Cells 3.66 10^6/uL (4.5-5.90)
[2021-05-27 06:35] LABS: Hematocrit 34.7 % (41.0-53.0); Hemoglobin 12.2 g/dL (13.5-17.5); Mean Corpuscular Hemoglobin 33.4 pg (28.0-32.0); Mean Corpuscular Hgb Conc. 35.2 g/dL (32.0-36.0); Mean Corpuscular Volume 94.7 fL (80.0-100.0); Red Cell Distribution Width 14.7 % (11.8-14.3); White Blood Cell 2.7 10^3/uL (4.4-10.8)
[2021-05-27 06:40] LABS: Potassium 4.9 mmol/L (3.5-5.1)
[2021-05-27 06:47] LABS: Albumin 2.8 g/dL (3.4-5.0); BUN/Creatinine Ratio 36.8; Bilirubin, Total 6.7 mg/dL (0.2-1.0); Calcium 8.4 mg/dL (8.5-10.1); Total Protein 6.4 g/dL (6.4-8.2)
[2021-05-27 07:21] LABS: Basophils % (manual) 0 (0.0-2.0); Blast Cells 0; Metamyelocytes % 0; Myelocytes % 0; Promyelocytes % 0; Reactive Lymphocytes 0
[2021-05-27 08:02] LABS: Band Neutrophils % (manual) 14; Eosinophils % (manual) 2 (0-7); Lymphocytes % (manual) 13 (10.0-50.0); Monocytes % (manual) 11 (0-12)
[2021-05-27 09:00] VITALS: BP 145/76
[2021-05-27] MEDS: FLUCONAZOLE 200MG/100ML 100 ML IV SCH (09:56)
[2021-05-27] MEDS: LACTULOSE 20Gm/30ML SOLN PO SCH ×2 (09:56→20:29)
[2021-05-27] MEDS: PANTOPRAZOLE 40 MG/10 ML VIAL INJ IV SCH (09:56)
[2021-05-27] MEDS: DOPamine 1600MCG/ML D5W 250 ML IV SCH (10:45)
[2021-05-27] MEDS: AMPICILLIN & SULBACTAM SODIUM 3 GM in SODIUM CHL 0.9% 100 ML IV SCH ×2 (11:00→22:45)
[2021-05-27 13:00] VITALS: BP 151/63
[2021-05-27] MEDS: MORPHINE SULFATE INJECTION 2 MG/ML SYRG IV PRN ×2 (14:27→22:55)
[2021-05-27 16:54] VITALS: BP 143/74
[2021-05-27 22:00] VITALS: BP 155/80
[2021-05-28] MEDS: DOPamine 1600MCG/ML D5W 250 ML IV SCH (01:33)
[2021-05-28] MEDS: SODIUM CHLORIDE 0.9% 1,000 ML IV SCH ×2 (04:00→17:10)
[2021-05-28 05:00] VITALS: BP 136/66
[2021-05-28] MEDS: OCTREOTIDE ACETATE 100 MCG/ML VL SUBCUT SCH ×3 (05:48→21:57)
[2021-05-28 05:55] LABS: INR 2.05 (0.9-1.15); Partial Thromboplastin Time 37.7 sec (23.6-33.0)
[2021-05-28] MEDS: InsuLIN REG 1unit/0.01ml Soln (100units/ml) SC SCH ×4 (05:55→22:21)
[2021-05-28] MEDS: ACCU-CHEK COMFORT CURVE STRIP VI SCH ×4 (05:55→21:57)
[2021-05-28 05:59] LABS: Albumin 2.3 g/dL (3.4-5.0); BUN/Creatinine Ratio 37.7; Calcium 8.1 mg/dL (8.5-10.1); Potassium 5.2 mmol/L (3.5-5.1)
[2021-05-28 06:02] LABS: Bilirubin, Total 7.7 mg/dL (0.2-1.0); Total Protein 5.9 g/dL (6.4-8.2)
[2021-05-28] MEDS: PANTOPRAZOLE 40 MG/10 ML VIAL INJ IV SCH (08:20)
[2021-05-28] MEDS: FLUCONAZOLE 200MG/100ML 100 ML IV SCH (08:20)
[2021-05-28] MEDS: LACTULOSE 20Gm/30ML SOLN PO SCH ×2 (08:20→21:55)
[2021-05-28 08:21] LABS: Basophils # (auto) 0.1 10 ^3/uL (0-0.2); Eosinophils # (auto) 0.1 10 ^3/uL (0-0.8); Nucleated Red Blood Cells % 0.3 %
[2021-05-28 08:23] LABS: Basophils % (auto) 1.6 % (0.0-2.0); Hematocrit 35.6 % (41.0-53.0); Hemoglobin 11.7 g/dL (13.5-17.5); Mean Corpuscular Hemoglobin 31.8 pg (28.0-32.0); Mean Corpuscular Hgb Conc. 32.9 g/dL (32.0-36.0); Mean Corpuscular Volume 96.7 fL (80.0-100.0); Red Blood Cells 3.68 10^6/uL (4.5-5.90); Red Cell Distribution Width 15.2 % (11.8-14.3); White Blood Cell 3.3 10^3/uL (4.4-10.8)
[2021-05-28 08:25] LABS: Lymphocytes % (auto) 15.4 % (10.0-50.0); Monocytes % (auto) 17.3 % (0.0-12.0)
[2021-05-28 08:26] LABS: Eosinophils % (auto) 1.8 % (0.0-7.0); Neutrophils % (auto) 63.9 % (37.0-80.0)
[2021-05-28 08:27] LABS: Lymphocytes # (auto) 14.5 10 ^3/uL (0.4-5.4); Monocytes # (auto) 0.6 10 ^3/uL (0-1.3); Neutrophils # (auto) 2.3 10 ^3/uL (1.6-8.6)
[2021-05-28 10:00] VITALS: BP 138/72
[2021-05-28] MEDS: AMPICILLIN & SULBACTAM SODIUM 3 GM in SODIUM CHL 0.9% 100 ML IV SCH ×2 (11:44→22:21)
[2021-05-28] MEDS: HYDROcodone-ACET 5/325MG TAB PO PRN (17:11)
[2021-05-28] MEDS: MORPHINE SULFATE INJECTION 2 MG/ML SYRG IV PRN (21:58)
[2021-05-28 22:00] VITALS: BP 149/81
[2021-05-29] MEDS: SODIUM CHLORIDE 0.9% 1,000 ML IV SCH (00:47)
[2021-05-29 05:00] VITALS: BP 149/77
[2021-05-29 05:33] LABS: Mean Corpuscular Volume 96.1 fL (80.0-100.0); Red Blood Cells 3.47 10^6/uL (4.5-5.90)
[2021-05-29 05:37] LABS: Hematocrit 33.4 % (41.0-53.0); Hemoglobin 11.4 g/dL (13.5-17.5); Mean Corpuscular Hemoglobin 32.8 pg (28.0-32.0); Mean Corpuscular Hgb Conc. 34.2 g/dL (32.0-36.0); Red Cell Distribution Width 15.7 % (11.8-14.3); White Blood Cell 3.4 10^3/uL (4.4-10.8)
[2021-05-29] MEDS: OCTREOTIDE ACETATE 100 MCG/ML VL SUBCUT SCH ×2 (05:47→13:42)
[2021-05-29 05:54] LABS: Basophils % (manual) 0 (0.0-2.0); Blast Cells 0; Metamyelocytes % 0; Myelocytes % 0; Potassium 4.7 mmol/L (3.5-5.1); Promyelocytes % 0; Reactive Lymphocytes 0
[2021-05-29 06:00] LABS: Albumin 2.1 g/dL (3.4-5.0); BUN/Creatinine Ratio 32.2; Calcium 7.7 mg/dL (8.5-10.1); Total Protein 5.9 g/dL (6.4-8.2)
[2021-05-29] MEDS: ACCU-CHEK COMFORT CURVE STRIP VI SCH ×4 (06:00→22:24)
[2021-05-29] MEDS: InsuLIN REG 1unit/0.01ml Soln (100units/ml) SC SCH ×4 (06:01→22:31)
[2021-05-29 08:10] LABS: Band Neutrophils % (manual) 3; Eosinophils % (manual) 3 (0-7); Lymphocytes % (manual) 19 (10.0-50.0); Monocytes % (manual) 14 (0-12)
[2021-05-29 09:00] VITALS: BP 146/78
[2021-05-29] MEDS: FLUCONAZOLE 200MG/100ML 100 ML IV SCH (09:17)
[2021-05-29] MEDS: PANTOPRAZOLE 40 MG/10 ML VIAL INJ IV SCH (09:17)
[2021-05-29] MEDS: LACTULOSE 20Gm/30ML SOLN PO SCH (09:24)
[2021-05-29] MEDS: AMPICILLIN & SULBACTAM SODIUM 3 GM in SODIUM CHL 0.9% 100 ML IV SCH ×2 (11:47→23:00)
[2021-05-29] MEDS: DOPamine 1600MCG/ML D5W 250 ML IV SCH (11:49)
[2021-05-29 13:00] VITALS: BP_SYST 150; BP_SYST 159; BP_DIAS 79; BP_DIAS 84
[2021-05-29] MEDS: MORPHINE SULFATE INJECTION 2 MG/ML SYRG IV PRN (13:46)
[2021-05-29 17:00] VITALS: BP 134/76
[2021-05-29] MEDS: HYDROcodone-ACET 5/325MG TAB PO PRN ×2 (17:09→22:25)
[2021-05-30] MEDS: AMPICILLIN & SULBACTAM SODIUM 3 GM in SODIUM CHL 0.9% 100 ML IV SCH ×2 (03:43→16:00)
[2021-05-30 05:15] VITALS: BP 134/72
[2021-05-30 05:34] LABS: Hematocrit 30.6 % (41.0-53.0); Hemoglobin 10.3 g/dL (13.5-17.5); Mean Corpuscular Hemoglobin 32.5 pg (28.0-32.0); Mean Corpuscular Hgb Conc. 33.7 g/dL (32.0-36.0); Mean Corpuscular Volume 96.7 fL (80.0-100.0); Red Blood Cells 3.16 10^6/uL (4.5-5.90); Red Cell Distribution Width 15.4 % (11.8-14.3)
[2021-05-30 05:54] LABS: Potassium 4.5 mmol/L (3.5-5.1)
[2021-05-30 05:59] LABS: Albumin 1.8 g/dL (3.4-5.0); BUN/Creatinine Ratio 27.6; Calcium 7.4 mg/dL (8.5-10.1)
[2021-05-30 06:02] LABS: Bilirubin, Total 5.8 mg/dL (0.2-1.0); Total Protein 5.4 g/dL (6.4-8.2)
[2021-05-30 06:08] LABS: Basophils % (manual) 0 (0.0-2.0); Blast Cells 0; Metamyelocytes % 0; Myelocytes % 0; Promyelocytes % 0; Reactive Lymphocytes 0
[2021-05-30] MEDS: InsuLIN REG 1unit/0.01ml Soln (100units/ml) SC SCH ×4 (07:00→21:22)
[2021-05-30] MEDS: ACCU-CHEK COMFORT CURVE STRIP VI SCH ×4 (07:40→21:22)
[2021-05-30 08:42] VITALS: BP 144/76
[2021-05-30 08:53] LABS: Band Neutrophils % (manual) 3; Lymphocytes % (manual) 10 (10.0-50.0)
[2021-05-30 08:54] LABS: Eosinophils % (manual) 1 (0-7); Monocytes % (manual) 13 (0-12)
[2021-05-30] MEDS: FLUCONAZOLE 200MG/100ML 100 ML IV SCH (09:03)
[2021-05-30] MEDS: HYDROcodone-ACET 5/325MG TAB PO PRN (09:07)
[2021-05-30] MEDS: PANTOPRAZOLE 40 MG TAB PO SCH (09:07)
[2021-05-30 17:00] VITALS: BP 158/93
[2021-05-30 22:00] VITALS: BP 120/72
[2021-05-31] MEDS: HYDROcodone-ACET 5/325MG TAB PO PRN ×2 (02:32→06:42)
[2021-05-31] MEDS: AMPICILLIN & SULBACTAM SODIUM 3 GM in SODIUM CHL 0.9% 100 ML IV SCH (03:31)
[2021-05-31 05:00] VITALS: BP 138/78
[2021-05-31] MEDS: ACCU-CHEK COMFORT CURVE STRIP VI SCH ×2 (06:24→11:30)
[2021-05-31 06:25] LABS: Potassium 4.1 mmol/L (3.5-5.1)
[2021-05-31] MEDS: InsuLIN REG 1unit/0.01ml Soln (100units/ml) SC SCH ×2 (06:31→11:30)
[2021-05-31 06:38] LABS: Albumin 1.8 g/dL (3.4-5.0); BUN/Creatinine Ratio 21.6; Bilirubin, Total 6.3 mg/dL (0.2-1.0); Calcium 7.4 mg/dL (8.5-10.1); Total Protein 5.8 g/dL (6.4-8.2)
[2021-05-31] MEDS: PANTOPRAZOLE 40 MG TAB PO SCH (07:41)
[2021-05-31 09:00] VITALS: BP 158/82
[2021-05-31] MEDS: FLUCONAZOLE 200MG/100ML 100 ML IV SCH (09:09)
== END 2021-05-31 11:45 | disposition home or self-care (01) | DRG 720 ==
LOC: EDBD 10:13 → ER 10:13 → TELE 17:01 → TELE-WESTW 22:40 → WEST WING 05-30 23:59
PROVIDERS: ADMIT Hospitalist; ATTEND Internal Medicine
PROC: 0W9G30Z Drainage of Peritoneal Cavity with Drainage Device, Percutaneous Approach (ICD-10-PCS; principal; 2021-05-25)
DX: A41.9 Sepsis, unspecified organism (principal); K76.7 Hepatorenal syndrome; K75.0 Abscess of liver; N17.0 Acute kidney failure with tubular necrosis; K65.1 Peritoneal abscess; C78.6 Secondary malignant neoplasm of retroperitoneum and peritoneum; D61.818 Other pancytopenia; D68.4 Acquired coagulation factor deficiency; K65.2 Spontaneous bacterial peritonitis; I13.0 Hypertensive heart and chronic kidney disease with heart failure and stage 1 through stage 4 chronic kidney disease, or unspecified chronic kidney disease; I50.9 Heart failure, unspecified; K76.6 Portal hypertension; R16.2 Hepatomegaly with splenomegaly, not elsewhere classified; N18.4 Chronic kidney disease, stage 4 (severe); E87.5 Hyperkalemia; K31.89 Other diseases of stomach and duodenum; E11.22 Type 2 diabetes mellitus with diabetic chronic kidney disease; E66.9 Obesity, unspecified; F17.210 Nicotine dependence, cigarettes, uncomplicated; L02.211 Cutaneous abscess of abdominal wall; E11.40 Type 2 diabetes mellitus with diabetic neuropathy, unspecified; N28.1 Cyst of kidney, acquired; Z20.822 Contact with and (suspected) exposure to COVID-19; K70.31 Alcoholic cirrhosis of liver with ascites; K86.1 Other chronic pancreatitis; F10.10 Alcohol abuse, uncomplicated; B95.2 Enterococcus as the cause of diseases classified elsewhere; K40.90 Unilateral inguinal hernia, without obstruction or gangrene, not specified as recurrent; E44.0 Moderate protein-calorie malnutrition; Z68.34 Body mass index [BMI] 34.0-34.9, adult; Z79.899 Other long term (current) drug therapy; Z80.0 Family history of malignant neoplasm of digestive organs; Z80.6 Family history of leukemia; Z83.3 Family history of diabetes mellitus; Z91.14 Patient's other noncompliance with medication regimen
CPT/HCPCS: 36415; 71045; 74176; 76700; 76775; 76856; 76942; 80048; 80053; 80061; 80307; 81001; 82140; 82570; 82962; 83690; 83735; 83880; 83970; 84100; 84132; 84156; 84300; 84484; 85007; 85025; 85027; 85379; 85610; 85730; 87040; 87077; 87086; 87088; 87186; 87205; 87426; 89051; 93005; 93970; 94640; 96365; 97163; C1729; C9113; G0378; J0696; J1450; J1815; J2405; J2543; J7060; P9047

== ENCOUNTER 2022-01-11 08:00 | Emergency (ER) | payer MEDICAID ==
[~2022-01-11] VITALS: Ht 170.2 cm; Wt 102.0 kg
[2022-01-11 08:12] VITALS: BP 115/67
[2022-01-11 08:48] LABS: Urine Bacteria NONE SEEN /hpf (None Seen); Urine Blood 1+ /uL (Negative); Urine Hyaline Cast FEW /lpf (0 - 2); Urine WBC <1 /hpf (0 - 3)
== END 2022-01-11 14:24 | disposition left against medical advice (07) ==
LOC: ER 08:00
DX: R18.8 Other ascites (principal); I11.0 Hypertensive heart disease with heart failure; I50.9 Heart failure, unspecified; E11.9 Type 2 diabetes mellitus without complications; F17.210 Nicotine dependence, cigarettes, uncomplicated
CPT/HCPCS: 74176; 81001; 93005